=== PATIENT | female | born 1945 | race Caucasian/White ===

== ENCOUNTER 2016-09-12 23:23 | Emergency (ER) | payer MEDICARE, MEDICAID ==
[~2016-09-12] VITALS: Ht 154.9 cm; Wt 90.7 kg
[2016-09-13] MEDS ORDERED: LEVO50TA8 PO (00:31)
[2016-09-13] MEDS ORDERED: CALC1TAB91 PO (00:31)
[2016-09-13] MEDS ORDERED: DULO30CA2 PO (00:31)
[2016-09-13] MEDS ORDERED: MECL12.582 PO (00:31)
[2016-09-13] MEDS ORDERED: METF500T4 PO (00:31)
[2016-09-13] MEDS ORDERED: RANI300T4 PO (00:31)
[2016-09-13] MEDS ORDERED: OMEG1CAP40 PO (00:31)
[2016-09-13] MEDS ORDERED: ASPI81TA2 PO (00:31)
[2016-09-13] MEDS ORDERED: NEBI5TAB8 PO (00:31)
[2016-09-13] MEDS ORDERED: PRAV80TA21 PO (00:31)
[2016-09-13] MEDS ORDERED: CELE200C PO (00:31)
[2016-09-13 01:21] VITALS: BP 166/80
== END 2016-09-13 01:25 | disposition home or self-care (01) ==
LOC: ER 23:25
DX: I10 Essential (primary) hypertension (principal); E11.9 Type 2 diabetes mellitus without complications; Z88.2 Allergy status to sulfonamides
CPT/HCPCS: 99283; A4606; Z7610